=== PATIENT | female | born 1965 | race Caucasian/White ===

== ENCOUNTER → 2022-08-19 | Outpatient (CLI) | payer OTHER, SELFPAY ==
--- NOTE | 2022-08-19 13:45 | EMB_PTH ---
PATIENT: VIDYA ALVAREZ LOC: [facility] U#:[id number] AGE/SX: 57/F ROOM: RE08/19/[address]: Dr. Adore Trujillo DO : 1965 BED: DIS: 08/19/2022 SPEC #: [id number] RECD: 08/19/22 14:27 STATUS: THOMAS REEsteban #: [id number] TED: 08/19/22 13:[address]: Adore Trujillo DEPT: SURGICAL PATHOLOGY RECD BY: Lori Barry Tissues: Endometrium, NOS Procedures: Surgery Specimen Level IV HEADER OPERATION: Endometrial biopsy PRE-OP DIAGNOSIS: Abnormal uterine bleeding TISSUE SUBMITTED: Endometrial biopsy MICROSCOPIC DIAGNOSIS Endometrium, biopsy: Proliferative endometrium with minimal disorder with focal glandular breakdown. AM:darrick 08/21/2022 MICROSCOPIC DESCRIPTION Slides are reviewed. GROSS DESCRIPTION Received is one container labeled with the patient's name and not further designated. The specimen consists of multiple irregular and elongated fragments of collier tissue that in aggregate measure 2.5 x 1.6 x 0.2 cm. The specimen is totally submitted in one cassette. / AM:darrick 08/20/2022 TC:5 [facility]: [id number]
== END | disposition home or self-care (01) ==
PROVIDERS: Visit Provider Student in an Organized Health Care Education/Training Program
DX: N93.9 Abnormal uterine and vaginal bleeding, unspecified (principal)
CPT/HCPCS: 88305

== ENCOUNTER 2022-10-22 05:32 | Day surgery (SDC) | payer SELFPAY, OTHER ==
[2022-10-19 11:45] LABS: Hemoglobin 10.5 g/dL (12.0-15.0); Mean Corp Hgb Conc 28.4 g/dL (32-36); Mean Corpuscular Hgb 23.2 pg (27.0-32.0); Mean Corpuscular Volume 81.9 fL (81-99); Mean Platelet Vol. 8.6 fl (6.2-12.0); Platelet Count 307 K/mm3 (150-450); RBC Distribution Width CV 19.5 % (11.6-14.6); RBC Distribution Width SD 58.1 fl (35.1-43.9); Red Blood Count 4.52 M/mm3 (4.2-5.4); White Blood Count 6.4 K/mm3 (4.4-11.0)
[2022-10-19 11:51] LABS: Magnesium 2.4 mg/dL (1.6-2.6)
[2022-10-19 12:03] LABS: Prothrombin Time (Protime)PT. 12.7 SECONDS (11.7-14.9)
[2022-10-19 12:04] LABS: Partial Thromboplast Time 31.8 Seconds (24.1-36.2)
[2022-10-22] VITALS (9 sets, daily range): BP systolic 109–133; BP diastolic 63–80; PULSE 59–72; RESP 16; TEMP 36.2–36.6; O2SAT 99–100; BMI 26.4
--- NOTE | 2022-10-22 | HYST_PTH ---
PATIENT: VIDYA ALVAREZ [place]: [facility] [place] U[place][id number] AGE/SX: 57/F ROOM: RE10/22/[address]: Dr. Adore Trujillo DO : 1965 BED: DIS: 10/22/2022 SPEC #: [id number] RECD: 10/22/22 12:18 STATUS: THOMAS SHAYE #: [id number] TED: 10/22/22 00:[address]: Adore Trujillo DEPT: SURGICAL PATHOLOGY RECD BY: Juwan Isaac ENTERED: 10/22/22 12:18 SP TYPE: HYSTERECT OTHR DR: Janet Wyatt, DIRECTOR EQUIPMENT-C Tissues: Uterus, NOS Procedures: Surgery Specimen Level V HEADER OPERATION: ERAS, lap robotic hysterectomy, bilateral salpingectomy, cysto PRE-OP DIAGNOSIS: Abnormal uterine bleeding TISSUE SUBMITTED: Uterus, cervix, bilateral fallopian tubes, fibroid MICROSCOPIC DIAGNOSIS Uterus, hysterectomy: Cervix ? nabothian cysts and mild chronic inflammation. Endometrium ? proliferative endometrium with focal stromal hemorrhage. Myometrium ? leiomyomas and adenomyosis. Right and left fallopian tubes ? vascular and lymphatic ectasia. AM:darrick 10/23/2022 MICROSCOPIC DESCRIPTION Slides are reviewed. GROSS DESCRIPTION Received in fixative is one container labeled with the patient's name and designated uterus. The specimen consists of a uterus with attached cervix, detached right and left fallopian tubes and an ovoid pink-collier nodule measuring 2.0 cm in diameter. The uterus with cervix measures 11.0 x 9.5 x 4.5 cm and weighs 206 gm. The endocervical canal measures 4.0 cm in length. Bicornuate endometrial cavity measures 5.0 x 4.5 cm. The reddish-collier endometrium measures up to 0.2 cm in thickness. The right and left fallopian tubes are similar in appearance averaging 6.0 cm in length and 0.7 cm in diameter. The myometrium measures 2.8 cm in average thickness and contains two rubbery nodules ranging in size from 0.5 to 1.0 cm and grossly resembling leiomyomas. Hair Machine Operator sections are submitted as follows: 1 - anterior cervix, 2 - posterior cervix, 3 & 4 - anterior endometrium/myometrium with myometrial nodule (cassette 3), 5 - posterior myometrial wall with myometrial nodule, 6 - posterior endometrium/ myometrium, 7 - nodule free in container, 8 - one fallopian tube, 9 - the other fallopian tube. / AM:darrick 10/22/2022 TC:1 CPT: 00318
--- NOTE | 2022-10-22 06:12 | EKG12_ITS ---
Test Reason : PRE-OP Blood Pressure : / mmHG Vent. Rate : 062 BPM Atrial Rate : 062 BPM P-R Int : 180 ms QRS Dur : 080 ms QT Int : 394 ms P-R-T Axes : 040 -15 003 degrees QTc Int : 399 ms Normal sinus rhythm with sinus arrhythmia Low voltage QRS Septal infarct , age undetermined Abnormal ECG No previous ECGs available Confirmed by ELODIA CRAIN, CHERIE ([id number]), international editorial producer DEVORA VIERA ([id number]) on 10/26/2022 2:42:00 PM Referred By: Adore Trujillo Confirmed By:CHERIE CLIFTON MD
[2022-10-22 06:16] LABS: Internal QC Validated? YES +Cl - CLEAR BKGD; Pregnancy, Urine Negative Negative
[2022-10-22] MEDS: dexAMETHasone 4 MG/ML Vial 8 MG IV (06:38)
[2022-10-22] MEDS: Magnesium 1 GM over 15 mins IV (06:38)
[2022-10-22] MEDS: Acetaminophen 500 MG Tablet 1000 MG PO (06:39)
[2022-10-22] MEDS: Gabapentin 600 MG Tablet PO (06:39)
[2022-10-22] MEDS: Lactated Ringers 1,000 ML 40 ML IV (06:40)
[2022-10-22 06:48] LABS: Bedside Glucose 107 mg/dL (74-106)
--- NOTE | 2022-10-22 07:11 | HP.PCM.OB_ITS ---
History and Physical Date of Admission: 10/22/22 HPI: 57-year-old female plan for robotic assisted total laparoscopic hysterectomy, bilateral salpingectomy, cystoscopy for abnormal uterine bleeding. Denies headache or vision changes, chest pain or shortness of breath, nausea or vomiting, diarrhea constipation, fevers or chills. HISTOTECHNICIAN history: G7, P7 spontaneous vaginal deliveries Medical history: 1. Bicornuate uterus surgical history: None Medications: 1. B complex 2. Multivitamin Family history: Sister had ovarian cancer, otherwise noncontributory Social history: Denies tobacco, alcohol, drug use Allergies: No known drug allergies Review of system: Negative otherwise stated above Physical exam Vital signs: Blood pressure is 129/80, heart rate 63, respiratory rate 16, temp 97.8 ?F, oxygen saturation 99% room air General: No acute distress HEENT: Normal cephalic/atraumatic, PERRLA Cardiorespiratory: No increased effort, regular rate and rhythm, clear to auscultation bilaterally Abdomen: Soft, nontender Extremity: No edema Neurologic: Cranial nerves II through XII grossly intact, no focal deficits Musculoskeletal: Moves all extremities equally Assessment and plan: 57-year-old female plan for robotic assisted total laparoscopic hysterectomy, bilateral salpingectomy, cystoscopy for abnormal uterine bleeding. All risk, benefits, alternatives discussed with the patient. Risk include but are not limited to: Risk of bleeding the point transfusion, infection, injury to surrounding tissue including bowel/bladder requiring prolonged Mak catheter use/major abdominal vessels, VTE, ICU admission. Patient aware and consented.
[2022-10-22] MEDS: Cefazolin 2 GM in 0.9% Normal Saline 100 ML IV (07:26)
--- NOTE | 2022-10-22 07:36 | OP.PCM_ITS ---
Report of Operation Date of Procedure: 10/22/22 Pre-Operative Diagnosis: Abnormal uterine bleeding, bicornuate uterus Post-Operative Diagnosis: Abnormal uterine bleeding, bicornuate uterus Surgery/Procedure Performed:: Robotic assisted total laparoscopic hysterectomy, bilateral salpingectomy, excision of broad ligament leiomyoma, cystoscopy Description of Surgical Findings:: Normal-appearing external genitalia. Redundant anterior vaginal tissue. Normal-appearing bilateral ovaries and fallopian tubes. Broad uterine fundus, consistent with bicornuate uterus. Adipose adhesions posterior to uterus. Peritoneal window consistent with endometriosis in the cul-de-sac. Areas on colon suspicious for diverticulosis. Surgeon: Adore Trujillo third steel pourer: Mukund Roberson Type of Anesthesia: General Specimen's removed: Uterus and cervix, bilateral fallopian tubes, leiomyoma Estimated Blood Loss (mL): 75cc Fluids Replaced: 1000cc Description of Procedure: Indication/risk/benefits: 57-year-old female plan for robotic assisted total laparoscopic hysterectomy, bilateral salpingectomy, cystoscopy for abnormal uterine bleeding.? All risk, benefits, alternatives discussed with the patient.? Risk include but are not limited to: Risk of bleeding the point transfusion, infection, injury to surrounding tissue including bowel/bladder requiring prolonged Mak catheter use/major abdominal vessels, VTE, ICU admission.? Patient aware and consented. Procedure: Patient taken to the operating room and placed under general anesthesia. Patient placed in the dorsal lithotomy position prepped and draped in usual sterile fashion. Mak catheter placed. Weighted speculum placed in posterior vagina and Steen retractor used to visualize the cervix. Anterior lip of the cervix grasped single-tooth tenaculum and cervix sequentially dilated. Sounded to 12 cm. Rvjcfv-go-dvsyw sutures placed at the 3 and 9 o'clock position of the cervix. Medium manipulator placed. Retractors removed. Gloves were changed and attention turned to the anterior abdominal wall. Supraumbilical vertical incision made with scalpel and trocar placed under direct visualization. Right and left lower quadrant trocars placed under direct visualization after abdomen was insufflated. Left upper quadrant trocar placed at Perez's point. Supraumbilical trocar replaced with robotic trocar. Robot docked. Inspection of the pelvis noted findings stated above. Right fallopian tube grasped at the fimbriated end and removed along the mesosalpinx to the level of the cornua. Left fallopian tube grasped at the fimbriated end and removed along mesosalpinx to the cornua. Both fallopian tubes removed through trocar. Bilateral ureters identified. Right broad ligament leiomyoma identified. Peritoneum incised that was surrounding the leiomyoma, removed leiomyoma and placed in the posterior cul-de-sac to allow for visualization. Right round ligament incised and dissection along the anterior leaf of the broad ligament was completed. Vesicouterine peritoneum identified and bladder flap created on the right side towards the left. Right utero-ovarian ligament coagulated and cut, allowing the ovary to fall away from the uterus. Dissection carried down the right side of the uterus. Left round ligament incised and anterior leaf of the broad ligament dissected, adjoining the vesicouterine peritoneum and bladder flap that of been created previously. Uterus was retroverted and bladder flap further dissected, allowing the bladder to fall away from the anterior uterus and cervix. Left utero-ovarian ligament coagulated and cut. Dissection carried down the left side of the uterus. As stated above there was some adipose tissue in the posterior cul-de-sac near the uterine arteries and posterior cervix. This was carefully dissected away using blunt and sharp dissection. Extensive skeletonization of the uterine arteries bilaterally was completed. Uterus was again retroverted and anterior colpotomy was made, carried around counterclockwise direction. At the level of the left uterine arteries, the left uterine arteries were coagulated and cut in a perpendicular then parallel fashion to the uterus and cervix. This allowed the uterine arteries to fall away from the colpotomy cup. Colpotomy was then continued around the left side of the cervix to the posterior cervix. At that time further skeletonization of the right uterine arteries was completed. Anterior colpotomy was extended in a clockwise fashion towards the right side of the cervix. The right uterine arteries were coagulated and cut, allowing them to fall away from the colpotomy. Colpotomy completed and uterus and cervix removed through the vagina. Fibroid removed through the vagina as well. Colpotomy closed with a running V-Loc stitch. Intra-abdominal pressure was decreased to 8 mmHg and cystoscopy is completed. Cystoscopy: Mak catheter removed and cystoscope placed through the urethra. Cystoscopy noted intact bladder dome and bilateral ureteral jets. Bladder drain ed. Pelvis was suction irrigated, hemostasis confirmed. And Kolby was placed along the colpotomy and dissection beds. Abdomen was desufflated. Trocars removed. Skin closed with subcuticular stitch and skin glue. At the end of the procedure all needle, lap, sponge counts were correct. UOP: 800cc clear urine Complications None Admit VTE Documentation VTE Mechan Device Prophylaxis: SCD's
[2022-10-22] MEDS: Ondansetron 4 MG/2 ML Vial IV (09:49)
--- NOTE | 2022-10-22 09:57 | PCM.DC ---
Discharge Instructions Diet Discharge Diet: No restrictions Activity Discharge Activity: Return to Normal Activity and May Shower May resume sexual activity in: 6 weeks Weight Bearing Status: Weight bearing as tolerated Dressing / Incision Call your doctor if your incision/area has: Continuous Slow Oozing, Increased Redness and Foul Smelling Discharge Call your doctor if you observe: Fever of 101 or Higher, Inability to urinate, Inability to have a bowel movement, Using more than 1 pad per hour, Shortness of breath, Swelling in the ankles, Chest pain and Uncontrolled pain Cleanse incision/area with: Soap & Water and Keep Dressing Clean & Dry Follow Up Care Please Follow Up With: Adore Trujillo DO When: 2 weeks post operative appointment Test Results: Test results from this visit will be discussed in further detail at your follow-up appointment, if applicable. Discharge Plan Admission Primary Reason for Your Visit: Hysterectomy Attending Provider: Adore Trujillo Primary Care Provider: Janet Wyatt NP Discharge Orders/Prescriptions Prescriptions: New oxycodone 5 mg tablet 5 mg PO Q6H PRN (Reason: pain (scale score 7-10)) 5 Days Qty: 16 0RF Continued Menopause Support 30-400-80 unit-mcg-mg Tablet 1 tab PO DAILY Alive Premium Women's 50 Plus 80 mcg-166.7 mcg-66.7 mg Tablet,Chewable 1 tab PO DAILY Referrals / Follow Up: Janet Wyatt THREAD CHECKER, THREAD CHECKER-C [Primary Care Provider] - Disposition Disposition (needs filled in before D/C Order can be placed): Home, Self Care
== END 2022-10-22 13:43 | disposition home or self-care (01) ==
LOC: SDC 05:34 → AC 05:36
PROVIDERS: Anesthesiology; PCP Nurse Practitioner Family; Referring Provider Student in an Organized Health Care Education/Training Program; Visit Provider Student in an Organized Health Care Education/Training Program
PROC: 0UT90ZZ Resection of Uterus, Open Approach (ICD-10-PCS; CPT 58571; principal; 2022-10-22 07:10)
DX: N93.9 Abnormal uterine and vaginal bleeding, unspecified (principal); Q51.3 Bicornate uterus; Z80.41 Family history of malignant neoplasm of ovary
CPT/HCPCS: 58571; 52000; S2900; 00840; 36415; 81025; 82962; 83735; 85027; 85610; 85730; 86850; 86900; 86901; 88307; 93005; J7120; J2405; J3475